=== PATIENT | female | born 1970 | race Caucasian/White ===

== ENCOUNTER → 2017-02-22 | Outpatient (CLI) | payer BC ==
--- NOTE | 2017-02-22 12:09 | KCIC ---
Left breast ultrasound: Reason for examination: Follow-up nodule after biopsy. Comparison is made to previous study dated 06/23/2016. Ultrasound examination of the left breast was performed with attention to the area of previous concern at the 2:30 position and the axilla. There is a 3.4 mm cystic appearing lesion present. This is a decrease in size from previous examination. There are no other cystic or solid nodules seen. No abnormal appearing lymph nodes are seen in the axilla. IMPRESSION: Small cystic lesion at the 2:30 position measuring 3.4 mm in size. No suspicious abnormalities seen. Recommend routine mammographic follow-up. BI-RADS Category 2: Benign. "Our facility is accredited by the [employer] Mammography [employer]." This patient's information has been entered into a reminder system for the patient to be notified with the results of her examination and a target date for the next mammogram. Electronically signed by: Angela Post MD (02/22/2017 12:07 PM) [id number]
== END | disposition home or self-care (01) ==
LOC: KCIC US 11:11
PROVIDERS: ATTEND Surgery
DX: N60.32 Fibrosclerosis of left breast (principal)
CPT/HCPCS: 76641

== ENCOUNTER → 2017-09-18 | Outpatient (CLI) | payer BC | END | disposition home or self-care (01) | LOC: KCIC MAMMO 16:32 | DX: Z12.31 Encounter for screening mammogram for malignant neoplasm of breast (principal) | CPT/HCPCS: 77067 ==

== ENCOUNTER → 2018-09-24 | Outpatient (CLI) | payer BC ==
--- NOTE | 2018-09-24 17:46 | KCIC ---
History: Screening. History of benign left breast biopsy in 2010. Bilateral digital CC and MLO views were obtained with mammography and tomosynthesis. Computer aided detection was utilized with iCAD Second Look 7.2-H. Previous: Mammogram September 18, 2017, left breast ultrasound February 22, 2017 and prior studies. There are scattered fibroglandular densities (Level 2 density).There are no suspicious masses, suspicious microcalcifications or areas of architectural distortion. Left outer breast biopsy clip again demonstrated. IMPRESSION: Negative mammogram. Patient information was entered into the [employer] reminder system with a target due date for the next screening mammogram. Routine annual screening mammogram in one year advised. BI-RADS Category 2: Benign. If your mammogram demonstrates that you have dense breast tissue, which could hide abnormalities, and if you have other risk factors for breast cancer that have been identified, you might benefit from supplemental screening tests that may be suggested by your ordering physician. Dense breast tissue, in and of itself, is a relatively common condition. This information is not provided to cause undue concern, but rather to raise your awareness and to promote discussion with your physician regarding the presence of other risk factors, in addition to dense breast tissue. A report of your mammography results will be sent to you and your physician. You should contact your physician if you have any questions or concerns regarding this report. A mammogram does not have 100% sensitivity and therefore a negative imaging study should not delay further work up of a suspicious abnormality. "Our facility is accredited by the [employer] Mammography [employer]." Electronically signed by: Jessee Edwards MD (09/24/2018 5:43 PM) [id number]
== END | disposition home or self-care (01) ==
LOC: KCIC MAMMO 16:11
PROVIDERS: ATTEND Obstetrics & Gynecology
DX: Z12.31 Encounter for screening mammogram for malignant neoplasm of breast (principal)
CPT/HCPCS: 77063; 77067

== ENCOUNTER → 2018-11-05 | Outpatient (CLI) | payer BC ==
--- NOTE | 2018-11-05 14:58 | KCIC ---
11/05/2018 Left lower extremity venous duplex study Clinical History: Lower extremity pain Technique: Using a combination of real time ultrasound imaging and color-flow and pulse Doppler imaging techniques, including spectral analysis, graded compression and augmentation, duplex evaluation of the deep venous system of the left lower extremity was performed. Multiple images were obtained. Findings: There is no sonographic evidence of deep venous thrombosis involving the visualized deep venous structures of the left lower extremity Impression: No evidence of deep venous thrombosis involving the left lower extremity Electronically signed by: Sylvain Gonzales MD (11/05/2018 2:55 PM) [id number]
== END | disposition home or self-care (01) ==
LOC: KCIC US 13:23
PROVIDERS: ATTEND Internal Medicine
DX: M79.605 Pain in left leg (principal); R22.42 Localized swelling, mass and lump, left lower limb
CPT/HCPCS: 93971

== ENCOUNTER → 2020-01-21 | Outpatient (CLI) | payer BC ==
--- NOTE | 2020-01-21 16:28 | KCIC ---
Bilateral digital screening mammograms with 3-D tomosynthesis: Reason for examination: Routine screening. Comparison is made to previous studies dated back to 06/13/2016. Bilateral mammograms in CC and oblique projections were obtained with 2-D imaging and 3-D tomosynthesis imaging on a Siemens Inspiration unit and reviewed on the workstation. Interpretation was made with the benefit of CAD. The skin and nipples show no abnormalities. No abnormal axillary lymph nodes are seen. The breast parenchyma shows scattered fatty and fibroglandular density. (Breast density: Category B.) There continues to be some asymmetric parenchyma in the right breast. There are no dominant masses, suspicious calcifications or architectural distortion. Biopsy clip remains present on the left. Impression: No evidence of malignancy. Recommend routine screening. BI-RAD Category 2: Benign. "Our facility is accredited by the [employer] Mammography [employer]." This patient's information has been entered into a reminder system for the patient to be notified with the results of her examination and a target date for the next mammogram. Electronically signed by: Angela Post MD (01/21/2020 4:25 PM) [id number]
== END | disposition home or self-care (01) ==
LOC: KCIC MAMMO 15:10
PROVIDERS: ATTEND Family Medicine
DX: Z12.31 Encounter for screening mammogram for malignant neoplasm of breast (principal)
CPT/HCPCS: 77063; 77067

== ENCOUNTER → 2021-02-11 | Outpatient (CLI) | payer BC ==
--- NOTE | 2021-02-12 18:11 | KCIC ---
Bilateral digital screening mammograms with 3-D tomosynthesis: Reason for examination: Routine screening. Comparison is made to previous studies dated back to 05/22/2014. Bilateral mammograms in CC and oblique projections were obtained with 2-D imaging and 3-D tomosynthes is imaging on a Siemens Inspiration unit and reviewed on the workstation. Interpretation was made wit h the benefit of CAD. The skin and nipples show no abnormalities. No abnormal axillary lymph nodes are seen. The breast par enchyma shows scattered fatty and fibroglandular density. (Breast density: Category B.) There are no dominant masses, suspicious calcifications or architectural distortion. Impression: No evidence of malignancy. Recommend routine screening. BI-RAD Category 1: Negative. "Our facility is accredited by the [employer] Mammography [employer]." This patient's information has been entered into a reminder system for the patient to be notified wit h the results of her examination and a target date for the next mammogram. Electronically signed by: Angela Post MD (02/12/2021 6:08 PM) [email or web address]
== END ==
LOC: KCIC MAMMO 16:04
PROVIDERS: ATTEND Family Medicine
DX: Z12.31 Encounter for screening mammogram for malignant neoplasm of breast (principal)
CPT/HCPCS: 77063; 77067